=== PATIENT | male | born 2005 | race Two or more races ===

== ENCOUNTER 2024-01-01 09:30 | Outpatient (RCR) | payer MEDICAID, SELFPAY ==
--- NOTE | 2023-12-26 10:47 | PT.OIERPT ---
PT OP Initial Eval Patient Information Outpatient Physical Therapy Treatment Date: 12/26/23 Visit Reasons: Pain in Left knee Medical Diagnosis: Left Knee Pain Treatment Dx #1: Left Knee Pain Smoking Status Smoking Status: Never smoker Initial Assessment Subjective: Pt is a 18 y/o male reports of chronic left knee pain (6/10) with activities. Xray negative no MRI has been done. Pt further reports of locking and popping of the knee with deep squatting. Pt has limitation with gym activities, walking, chores, and performing recreational activities. Objective: Left Knee AROM: all motions are WFL Left Knee MMTs: grossly 3+/5 Left Hip MMTs: grossly 3+/5 Special Test (+) ant knee compression test (+) Ronnie Assessment: Pt demonstrate left knee pain consistent with patellofemoral syndrome leading to difficulty with ADLs. Pt will benefit from physical therapy to increase strength, flexibility, and work on knee stability [employer] Term and [employer] Goals 1) Decrease knee pain to 2/10 in 6 wks to be able to perform squatting activities 2) Increase knee MMTs grossly to 4/5 in 6 wks to be able to perform gym activities 3) Increase hip MMTs grossly to 4-/5 in 6 wks to be able to perform recreational activities 4) Indep with HEP Treatment Plan 1) Manual Therapy 2) Therapeutic Activities 3) Therapeutic Exercises 4) Modalities (ice, heat) 5) Balance training 6) Gait Training Frequency and Duration: 2 x wk for 6 wks Certification Dates: 12/26/23 to 03/27/24 Procedure Charges OP PT Eval Mod Complex 30 minutes: Yes
--- NOTE | 2024-01-01 09:52 | PT.ODAYNRPT ---
PT Outpatient Daily Note OP Daily Note Outpatient Physical Therapy Treatment Date: 01/01/24 Visit Reasons: Pain in Left knee Subjective: Pt's knee is okay and still has pain with squatting. Objective: Please see flow chart for list of ther ex perfromed Assessment: cues to correct side step and monster walk to improve form. Plan: Continue with PT Length of Time (minutes) of Treatment: 30 Minutes Procedure Charges Therapeutic Exercise 30 minutes: Yes
== END 2024-01-06 23:59 | disposition home or self-care (01) ==
LOC: CPTX 09:30
PROVIDERS: PCP Physician Assistant; Referring Provider Physician Assistant; Visit Provider Physician Assistant
DX: M25.562 Pain in left knee (principal); R26.2 Difficulty in walking, not elsewhere classified; G89.29 Other chronic pain
CPT/HCPCS: 97110; 97162

== ENCOUNTER 2024-01-09 08:18 | Outpatient (RCR) | payer MEDICAID, SELFPAY ==
--- NOTE | 2024-01-09 09:30 | PT.ODAYNRPT ---
PT Outpatient Daily Note OP Daily Note Outpatient Physical Therapy Treatment Date: 01/09/24 Visit Reasons: Pain in left knee Subjective: Pt's knee pain is the same and continues to have pain. Objective: Please see flow chart for list of ther ex performed Assessment: taught patient to stretch IT band and quads to maintain flexibility of the knee. Pt performed correctly and safely Plan: Continue with PT Length of Time (minutes) of Treatment: 30 Minutes Procedure Charges Therapeutic Exercise 30 minutes: Yes
== END 2024-02-06 23:59 | disposition home or self-care (01) ==
LOC: CPTX 08:18
PROVIDERS: PCP Physician Assistant; Referring Provider Physician Assistant; Visit Provider Physician Assistant
DX: M25.562 Pain in left knee (principal); R26.2 Difficulty in walking, not elsewhere classified; G89.29 Other chronic pain
CPT/HCPCS: 97110